=== PATIENT | male | born 1960 | race Two or more races ===

== ENCOUNTER 2017-11-25 23:36 | Emergency (ER) | payer SELFPAY ==
[~2017-11-25] VITALS: Ht 170.2 cm; Wt 61.2 kg
[2017-11-25] MEDS ORDERED: NKM (23:40)
[2017-11-26 02:34] VITALS: BP 122/64
--- NOTE | 2017-11-26 02:34 | Emergency Room Report ---
History of Present Illness General Chief Complaint: Alcohol Intoxication Source: Patient Present Illness HPI Patient is a 57-year-old male brought in by EMS after increased altered mental status. Patient prior history of a cold these. He is normally wheelchair- bound. The patient was brought in with his wheelchair. Patient prior hip fracture Allergies: Coded Allergies: No Known Allergies (Unverified , 11/25/17) Patient History Past Medical History: see triage record Reviewed Nursing Documentation: PMH: Agreed, PSxH: Agreed Nursing Documentation-PMH Past Medical History: No Stated History Review of Systems All Other Systems: limited - by poor cooperation Physical Exam Vital Signs Date Time Temp Pulse Resp B/P (MAP) Pulse Ox O2 Delivery O2 Flow Rate FiO2 11/25/17 23:37 97.3 68 16 126/50 93 Room Air General Appearance: well appearing, no apparent distress, alert, GCS 15 Head: normocephalic, atraumatic ENT: hearing grossly normal, normal voice Neck: full range of motion, supple Respiratory: lungs clear, no respiratory distress, speaking full sentences Musculoskeletal: no calf tenderness Neurologic: normal inspection, alert, oriented x3, responsive Skin: no rash Medical Decision Making Diagnostic Impression: Primary Impression: Acute alcoholic intoxication ER Course Patient presented for altered mental status. Differential diagnosis included but was not limited to ischemic stroke, subarachnoid hemorrhage, hypoglycemia, spinal cord injury, neurodegenerative disorder, urinary tract infection, hypoxemia. Patient's benign exam and does not appear to require any further imaging or laboratory testing at this time. The patient appears to be intoxicated with alcohol. Patient was noted to have initially confused mental status. Patient had gradual improvement of neurologic status. At the time of discharge the patient awake alert and good plan for self care. Patient declined placement. The patient noted be nonambulatory at baseline Patient was seen and examined by me in the emergency department. No life- threatening signs or symptoms were identified. Patient is stable for discharge from emergency Department. Patient was advised to stop drinking alcohol. He was advised to followup with outpatient therapy for alcohol treatment. Last Vital Signs Date Time Temp Pulse Resp B/P (MAP) Pulse Ox O2 Delivery O2 Flow Rate FiO2 11/25/17 23:37 97.3 68 16 126/50 93 Room Air Status: improved Disposition: HOME, SELF-CARE Condition: Stable Referrals: NOT CHOSEN IPA/,REFERRING (PCP) Armen Kohli Nov 26, 2017 02:34
[2017-11-26 05:30] VITALS: BP 124/66
[2017-11-26 05:31] VITALS: BP 122/64
== END 2017-11-26 05:32 | disposition home or self-care (01) ==
LOC: EDBD 23:36 → EMR 23:46
DX: F10.129 Alcohol abuse with intoxication, unspecified (principal)
CPT/HCPCS: 99284